=== PATIENT | male | born 1930 | race Caucasian/White ===

== ENCOUNTER 2017-02-04 07:49 | Day surgery (SDC) | payer MEDICARE, BC ==
[2017-02-04] MEDS ORDERED: Lactated Ringers 1,000 ML IV SCH (08:00)
[2017-02-04] MEDS ORDERED: Sodium Chloride 0.9% 10 ML Syringe FLUSH PRN (08:00)
[2017-02-04] MEDS ORDERED: fentaNYL 100 MCG/2 ML SDV ONE (09:06)
[2017-02-04] MEDS ORDERED: Propofol 200 MG/20 ML SDV ONE (09:06)
[2017-02-04] MEDS ORDERED: Midazolam 1 MG/ML 2 ML SDV ONE (09:06)
[2017-02-04] MEDS ORDERED: ceFAZolin 1 GM Vial ONE (09:30)
[2017-02-04] MEDS ORDERED: Bupivacaine 0.25%/EPINEPHrine 1:200,000 30 ML SDV INFILT ONE (09:35)
--- NOTE | 2017-02-04 11:01 | PCM.OPNOTE ---
- General Post-Op/Procedure Note Date of Surgery/Procedure: 02/04/17 Operative Procedure(s): L IH Repair with Mesh. L cheek lesion removal Findings: L Direct and Indirect IH Pre Op Diagnosis: L IH. L Cheek Lesion Post-Op Diagnosis: Same Anesthesia Technique: Local, MAC Primary Surgeon: Jayesh Park Anesthesia Provider: Katalina Parekh Pathology: L cheek EBL in mLs: 5 Complications: None Condition: Good Free Text/Narrative:: Intake & Output 02/03/17 02/04/17 02/04/17 22:59 06:59 14:59 Intake Total 950 Balance 950
[2017-02-04 16:42] VITALS: BP 123/80
--- NOTE | 2017-02-09 12:31 | OR ---
Date of Procedure: 02/04/2017 PREOPERATIVE DIAGNOSES: 1. Left inguinal hernia. 2. Left cheek lesion. POSTOPERATIVE DIAGNOSES: 1. Left inguinal hernia. 2. Left cheek lesion. PROCEDURES: 1. Left inguinal hernia with mesh. 2. Excision of left cheek lesion, 10 mm diameter. ANESTHESIA: Local with IV sedation. PROCEDURE IN DETAIL: The patient was brought to the operating room where IV sedation was administered. The left inguinal area was prepped with ChloraPrep and draped sterilely. A 50:50 mixture of 1% lidocaine and 0.25% Marcaine with epinephrine was used for local anesthesia. A routine hernia incision was made and extended through the subcutaneous tissue. External fascia was opened, and the ilioinguinal nerve identified and retracted inferiorly and protected from injury. Cord structures were removed off the pubic tubercle, and a Demotte drain was placed around these. There was a medium-sized indirect hernia sac present that was clean to its base, then reduced, and the internal ring was reapproximated with 2-0 Vicryl to keep it reduced. There was also a medium-size direct inguinal hernia present that was also reduced and closed, and a figure-of- eight 2-0 Vicryl was also used to keep this reduced to help with visualization. A routine hernia repair was then performed using large pre-cut keyhole polypropylene mesh. This was secured to the pubic tubercle with 0 Prolene. Several more interrupted sutures were used to secure this to Avi ligament, and then, a transition stitch was made to the shelving edge of Poupart ligament medial to the femoral vein. The edges of the mesh were brought around the cord and nerve and secured, such that the tip of the small finger was snugly fit into the opening. The mesh edges were trimmed and tucked beneath the external fascia. After the inferior edge was finished being secured, the superior edge was secured to the muscle with interrupted 0 Prolene providing a tension-free repair. The wound was thoroughly irrigated, and return was clear and hemostasis assured. External fascia was closed with a running 2-0 Vicryl, subcutaneous tissue was reapproximated with 2-0 Vicryl, and the skin closed with a running 4- 0 Vicryl subcuticular suture. Benzoin and Steri-Strips were placed, and sterile dressing was applied. The patient tolerated the procedure well. Testicles were in the scrotum following the procedure. Next, the lesion on his face was anesthetized with the same local anesthetic. An elliptical skin incision was made with 1 mm clear margins making excision with 12 mm. This was closed in two layers with 3-0 Vicryl subcutaneous suture and interrupted 5-0 Ethilon skin sutures. Band-Aid was applied. The patient tolerated this well and returned to recovery in stable condition. HAMLET CALDERÓN MD /[id number]
== END 2017-02-04 14:25 | disposition home or self-care (01) ==
LOC: LL.SDS 07:49
PROVIDERS: ATTEND Surgery
DX: C44.319 Basal cell carcinoma of skin of other parts of face (principal); K40.90 Unilateral inguinal hernia, without obstruction or gangrene, not specified as recurrent; I10 Essential (primary) hypertension; K21.9 Gastro-esophageal reflux disease without esophagitis; E78.5 Hyperlipidemia, unspecified; N40.1 Benign prostatic hyperplasia with lower urinary tract symptoms; R73.9 Hyperglycemia, unspecified; Z88.2 Allergy status to sulfonamides; Z79.899 Other long term (current) drug therapy
CPT/HCPCS: 00830; 11642; 12051; 49505; C1781; J0690; J2250; J2704; J3010; J7120; 88305